=== PATIENT | male | born 1995 | race Caucasian/White ===

== ENCOUNTER 2017-10-02 20:46 | Emergency (ER) | payer OTHER ==
[~2017-10-02] VITALS: Ht 172.7 cm; Wt 90.0 kg
[2017-10-02 20:53] VITALS: TEMP 36.5; Ht 172.7 cm; Wt 90.0 kg
--- NOTE | 2017-10-02 21:54 | DIAGNOSTIC IMAGING REPORT ---
CT SCAN OF THE BRAIN WITHOUT IV CONTRAST CLINICAL HISTORY: Fall with head injury. COMPARISON STUDY: No priors. TECHNIQUE: Unenhanced axial CT scan of the brain is performed from the vertex to the skull base. A dose lowering technique was utilized adhering to the principles of ALARA. CT DOSE: 562.60 mGy.cm FINDINGS: Brain parenchyma: The brain parenchyma is normal in appearance. There is no hemorrhage, mass effect, or evidence of acute territorial ischemia by CT criteria. Ann-white matter is preserved. No extra-axial fluid collection is seen. Ventricles, sulci, cisterns: Normal in configuration. Intracranial vasculature: The visualized intracranial vasculature at the skull base is normal in appearance. Calvarium: There is no depressed calvarial fracture. Sinuses and mastoids: The visualized paranasal sinuses are clear. The mastoid air cells are well pneumatized. Orbits: The bony orbits are grossly intact. IMPRESSION: No acute intracranial abnormality. Electronically signed by: William Omer M.D. 10/02/2017 9:52 PM Dictated Date/Time: 10/02/2017 9:51 PM
--- NOTE | 2017-10-02 22:24 | EMERGENCY ROOM VISIT NOTE ---
History First contact with patient: 20:56 Chief Complaint: FALL Stated Complaint: FELL AND HIT HEAD-WORK RELATED History of Present Illness The patient is a 22 year old male who presents to the Emergency Room with complaints of a head injury. The patient was at work and slipped on ice this afternoon, approximately 5 hours ago. The patient struck the right side of his head. He reports a headache has been gradually worsening throughout the day. He describes the pain as throbbing and rates the discomfort an 8/10. He has had associated light sensitivity and family members state he has been slow to answer questions. There was no loss of consciousness at the time of the injury. There has been no nausea or vomiting. The patient denies any neck pain , blurred vision, slurred speech, numbness or weakness. He does not take any anticoagulants. Review of Systems A complete 10 point review of systems was reviewed with the patient with pertinent positives and negatives as per history of present illness. All else were negative. Past Medical/Surgical History Medical Problems: (1) No significant past medical history (2) Vaso vagal episode Social History Smoking Status: Unknown if Ever Smoked Alcohol Use: occasionally Marital Status: single Housing Status: lives with family Occupation Status: employed, student Current/Historical Medications No Active Prescriptions or Reported Meds Physical Exam Vital Signs Date Time Temp Pulse Resp B/P (MAP) Pulse Ox O2 Delivery O2 Flow Rate FiO2 10/02/17 20:53 36.5 82 16 156/92 96 Room Air Physical Exam VITALS: Vitals are noted on the nurse's note and reviewed by myself. Vital signs stable. GENERAL: This is a 22-year-old male, in no acute distress, nondiaphoretic, well- developed well-nourished. SKIN: The skin was without rashes, erythema, edema, or bruising. HEAD: Normocephalic atraumatic. EARS: External auditory canals clear, tympanic membranes pearly ann without erythema or effusion bilaterally. No hemotympanum. EYES: Pupils equal round and reactive to light and accommodation. Extraocular movements intact. MOUTH: Mucous membranes moist. Tonsils are not enlarged. Pharynx without erythema or exudate. NECK: Supple without nuchal rigidity. Cervical spine is nontender. HEART: Regular rate and rhythm without murmurs gallops or rubs. LUNGS: Clear to auscultation bilaterally without wheezes, rales or rhonchi. MUSCULOSKELETAL: Strength 5/5 throughout. NEURO: Patient was alert and oriented to person place and time. No focal neurological deficits. Medical Decision & Procedures ER Provider Diagnostic Interpretation: CT SCAN OF THE BRAIN WITHOUT IV CONTRAST FINDINGS: Brain parenchyma: The brain parenchyma is normal in appearance. There is no hemorrhage, mass effect, or evidence of acute territorial ischemia by CT criteria. Ann-white matter is preserved. No extra-axial fluid collection is seen. Ventricles, sulci, cisterns: Normal in configuration. Intracranial vasculature: The visualized intracranial vasculature at the skull base is normal in appearance. Calvarium: There is no depressed calvarial fracture. Sinuses and mastoids: The visualized paranasal sinuses are clear. The mastoid air cells are well pneumatized. Orbits: The bony orbits are grossly intact. IMPRESSION: No acute intracranial abnormality. Medical Decision Differential diagnosis includes concussion, subarachnoid hemorrhage, subdural hematoma, epidural hematoma, among others. The patient is a 22-year-old male who presents today complaining of a closed head injury. CT was performed and showed no acute findings. Patient was reassured. Conservative head injury precautions were discussed with the patient and mother. They verbalized understanding of my assessment and treatment plan and the patient was discharged home in good condition. Head Trauma GCS Score: 15 Medication Reconcilliation Current Medication List: was personally reviewed by me Blood Pressure Screening Patient's blood pressure: Elevated blood pressure Blood pressure disposition: Elevated BP felt to be situational Impression Primary Impression: Closed head injury Departure Information Dispostion Home / Self-Care Condition GOOD Prescriptions No Active Prescriptions or Reported Meds Referrals No Doctor, Assigned (PCP) Patient Instructions Concussion, My [facility] Additional Instructions You have been treated in the Emergency Department for a Closed Head Injury. CT Scan of your head/brain demonstrated no acute bleeding or other abnormalities. This does not completely rule out the risk for future damage to the brain. For pain control, you can use the following [id number] medicines (if >12 yo): - Regular strength (325mg/tab) Tylenol (acetaminophen) 2 tabs every 4-6 hours as needed. Do not exceed 12 tablets in a 24 hour period. Avoid taking more than 4 grams (4000 mg) of Tylenol per day. This includes any other sources of acetaminophen you may take on a regular basis. - Regular strength (200 mg/tab) Advil (ibuprofen) 1-2 tabs every 4-6 hours as needed. Do not exceed a dose of 3200 mg per day. You should relax in a quiet, dark place for the rest of the day. Avoid any possible triggers including: cigarette smoke, caffeine, nicotine, chocolate, wine, beer, loud noises or music, or bright lights. You should schedule a follow-up appointment in 2-3 days with your Primary Care Provider or established Neurologist for further evaluation and treatment of your Headache. Return to the Emergency Department if your current symptoms worsen despite treatment course outlined above, or if you develop any of the following symptoms : intractable pain despite aforementioned treatment course, visual disturbances , loss of vision, unilateral weakness or facial drooping, slurring of speech, loss of coordination, or loss of consciousness. Problem Qualifiers Primary Impression: Closed head injury Encounter type: initial encounter Qualified Codes: S09.90XA - Unspecified injury of head, initial encounter
[2017-10-02 22:39] VITALS: BP 135/78; PULSE 80; O2SAT 98
== END 2017-10-02 22:35 | disposition home or self-care (01) ==
LOC: C.EDB 20:48 → C.EDD 22:35
DX: S09.90XA Unspecified injury of head, initial encounter (principal); W22.8XXA Striking against or struck by other objects, initial encounter